=== PATIENT | male | born 1945 | race Caucasian/White ===

== ENCOUNTER 2017-10-09 06:32 | Inpatient (IN) | payer MEDICARE ==
[~2017-10-09] VITALS: Ht 177.8 cm; Wt 101.8 kg
[2017-10-09] VITALS (22 sets, daily range): BP systolic 96–133; BP diastolic 49–85; Ht 177.8 cm; Wt 101.8 kg
--- NOTE | ~2017-10-09 | HEMODYNAMI ---
PATIENT:AVERY EDWARDS MEDICAL RECORD: [id number] : 43 LOCATION:[facility] ADMISSION DATE: 10/09/17 Generatedon:10/09/201711:36 Patient name: AVERY EDWARDS Patient #: [id number] SSN: D OB: 1945 Date of study: 10/09/2017 Page: Of Hemodynamic Procedure Report Patient Data Patient Demographics Procedure consent was obtained First Name: AVERY Gender: Male Last Name: JERRY : 1945 Patient #: [id number] Age: 72 year(s) Race: Unknown Additional ID: [id number] Contact details [address]: [address] [place] [address] State: [place] City: [place] Zip code: [address] Admission Admission Data Admission Date: 10/09/2017 Admission Time: 6:32 Procedure Procedure Types Cath Procedure Peripheral Cath Diagnostic Procedure Miscellaneous Procedure Description Procedure Date Procedure Date: 10/09/2017 Procedure Start Time: 9:55 Procedure Staff Name Function Lv Boston MD Performing Physician Young Johnson RT Monitor Anabelle Joseph RT Scrub Marnie England RN Nurse Procedure Data Cath Procedure Fluoroscopy Diagnostic fluoroscopy Total fluoroscopy Time: time: 14.2 min 14.2 min Diagnostic fluoroscopy Total fluoroscopy dose: 484 dose: 484 mGy mGy Contrast Material Contrast Material Type Amount (ml) Isovue 300 60 Entry Location Entry Primary Successful Side Size Upsize Upsize Entry Closure Succes sful Closure Location (Fr) 1 (Fr) 2 (Fr) Remarks Device Remarks Femoral Right 5 Fr 6 Fr Exoseal artery Long Diagnostic catheters Device Type Used For End Catheter Placement Merit impress Jorgensen 2 Cervical carotid cath 100cm ([id number]) (common) arteriography Procedure Medications Medication Administration Route Dosage Versed I.V. 0.5 mg Fentanyl I.V. 25 mcg Heparin Bolus I.V. 6000 units Heparin Bolus I.V. 3000 units Hemodynamics Rest Heart Rate: 22 (bpm) Snapshots Pre Cath Intra NCS Post Cath Vital Signs Time Heart Resp SPO2 etCO2 NIBP (mmHg) Rhythm Pain Sedation Rate (ipm) (%) (mmHg) Status Level (bpm) 9:41:05 51 11 98 4.5 144/86(119) NSR 0 (11) 10(A) , No pain 9:45:21 56 14 100 3 130/81(106) NSR 0 (11) 10(A) , No pain 9:49:33 57 15 98 6 140/81(120) NSR 0 (11) 10(A) , No pain 9:53:49 54 11 98 5.2 119/78(99) NSR 0 (11) 10(A) , No pain 9:57:56 59 14 99 3.7 116/78(96) NSR 0 (11) 10(A) , No pain 10:02:04 57 16 98 4.5 97/64(75) NSR 0 (11) 10(A) , No pain 10:06:08 61 14 99 4.5 82/60(71) NSR 0 (11) 10(A) , No pain 10:10:10 57 13 100 5.2 89/56(71) NSR 0 (11) 10(A) , No pain 10:14:14 60 18 98 4.5 89/57(66) NSR 0 (11) 10(A) , No pain 10:15:54 56 17 99 4.5 89/58(68) NSR 0 (11) 10(A) , No pain 10:19:58 56 15 100 3.7 85/58(73) NSR 0 (11) 10(A) , No pain 10:23:57 54 17 100 4.5 97/61(80) NSR 0 (11) 10(A) , No pain 10:28:03 53 15 99 3.7 99/62(81) NSR 0 (11) 10(A) , No pain 10:32:07 54 26 100 4.5 110/67(79) NSR 0 (11) 10(A) , No pain 10:36:15 52 15 100 5.2 114/69(102) NSR 0 (11) 10(A) , No pain 10:40:16 51 18 100 4.5 114/71(85) NSR 0 (11) 10(A) , No pain 10:44:26 52 14 100 5.2 117/68(95) NSR 0 (11) 10(A) , No pain 10:48:36 57 11 100 3.7 112/69(89) NSR 0 (11) 10(A) , No pain 10:52:44 51 33 100 4.5 112/68(87) NSR 0 (11) 10(A) , No pain 10:57:00 54 20 98 5.2 73/47(62) NSR 0 (11) 10(A) , No pain 10:59:23 51 15 100 3.7 101/63(83) NSR 0 (11) 10(A) , No pain 11:03:31 50 15 100 4.5 101/61(73) NSR 0 (11) 10(A) , No pain 11:07:37 52 14 100 4.5 111/68(98) NSR 0 (11) 10(A) , No pain 11:12:34 57 14 100 3 128/79(110) NSR 0 (11) 10(A) , No pain 11:16:40 48 12 100 3 108/67(91) NSR 0 (11) 10(A) , No pain 11:20:48 52 12 6 103/69(83) NSR 0 (11) 10(A) , No pain 11:24:49 52 10 98 5.2 110/69(94) NSR 0 (11) 10(A) , No pain 11:29:48 52 16 100 4.5 Measuring NSR 0 (11) 10(A) , No pain 11:29:52 53 16 99 2.2 110/72(94) NSR 0 (11) 10(A) , No pain 11:33:58 57 15 99 2.2 124/75(87) NSR 0 (11) 10(A) , No pain Medications Time Medication Route Dose Verified Delivered Reason Notes Effectivene ss by by 9:56:36 Versed I.V. 0.5 Lv Dye for mg Ludy England RN sedation 9:56:46 Fentanyl I.V. 25 Lv Dye for mcg Ludy England RN sedation 10:02:43 Heparin I.V. 6000 Lv Dye Bolus units Ludy England RN, MD 10:51:32 Heparin I.V. 3000 Lv Marnie Bolus units Ludy England RN, MD Procedure Log Time Note 9:13:54 Young Johnson RT (R) (CV) sent for patient. Start room use. 9:14:03 Time tracking: Regular hours 9:14:07 Plan of Care:Hemodynamics will remain stable., Cardiac rhythm will remain stable., Comfort level will be maintained., Respiratory function will remain adequate., Patient/ family verbilizes understanding of procedure., Procedure tolerated without complication., Recovers from procedure without complications.. 9:14:13 Patient received from Outpatients to IR Alert and oriented. Tansferred to table in Supine position. 9:14:15 Correct patient and procedure confirmed by team. 9:14:16 Signed procedure consent form obtained from patient. 9:14:18 ECG and BP/O2 sat monitors applied to patient. 9:14:19 Full Disclosure recording started 9:14:20 - 9:14:22 H&P Date Dictated: 10/09/2017 H&P Addendum completed by physician on day of procedure. (MUST COMPLETE FOR ALL OUTPATIENTS). 9:14:23 Pre-procedure instructions explained to patient. 9:14:23 Pre-op teaching completed and patient verbalized understanding. 9:14:33 Family in waiting room. 9:14:37 Patient NPO since Midnight. 9:14:42 Is the patient allergic to Iodine/contrast media? No. 9:14:44 Is patient on blood thinner?Yes 9:14:46 ACC The patient was administered the following blood thiners within the last 24 hours: ACCPlavix 9:14:49 - 9:14:49 ----Pre-sedation anethsthesia assessment.---- 9:14:52 Previous problem with sedation/anesthesia? No ? 9:14:53 Snore? Yes 9:14:55 Sleep apnea? No 9:14:56 Deviated septum? No 9:14:57 Opens mouth fully? Yes 9:14:59 Sticks out tongue? Yes 9:15:09 Airway obstruction? Yes copd 9:15:16 Dentures? Yes in 9:15:23 Patient pain scale 0/10 no pain. 9:15:25 Sharps counted by scrub and verified by R.N. 9:15:27 Alarms reviewed by R. N. 9:15:34 Right groin area was prepped with chlora-prep and draped in sterile fashion 9:15:40 Use device set IR Diagnostic 9:15:41 ACIST Syringe (53439) opened to sterile field. 9:15:41 ACIST Hand Control (81495) opened to sterile field. 9:15:42 ACIST Manifold (93912) opened to sterile field. 9:15:42 Bag Decanter (2002S) opened to sterile field. 9:15:42 Sterile Angiographic Pack opened to sterile field. 9:39:56 Vital chart was started 9:39:57 Baseline sample Acquired. 9:49:53 Baseline sample Acquired. 9:53:25 Physician arrived 9:53:26 --------ALL STOP TIME OUT------ 9:53:28 Final Timeout: patient, procedure, and site verified with staff and physician. All members of the team are in agreement. 9:53:30 Right groin site verified by team. 9:53:34 Sedation plan: IV Moderate Sedation Medication:Versed, Fentanyl 9:55:12 Procedure started. 9:55:16 Local anesthetic to right femoral artery with Lidocaine 1% by Lv Boston MD.INITIAL ACCESS ONLY 9:55:40 A 5 Fr sheath was inserted into the Right Femoral artery 9:55:43 OBREGON 260 wire (O04455) opened to sterile field. 9:55:44 BENTSON 145cm wire (Y01488) opened to sterile field. 9:55:44 SHEATH 5FR [place] (VKX053) opened to sterile field. 9:55:44 Micropuncture VSI 4FR kit opened to sterile field. 9:55:45 TUBING Contrast Injection High Pressure (BBK370P) opened to sterile field. 9:55:46 GLIDE WIRE ANGLE 180cm (ZU9919) opened to sterile field. 9:55:48 INFLATOR BasixTOUCH (TZ1107) opened to sterile field. 9:56:05 A Merit impress Jorgensen 2 cath 100cm ([id number]) was advanced over the wire and used for Cervical carotid (common) arteriography. 9:56:36 Versed 0.5 mg I.V. was administered by Marnie England RN; for sedation; 9:56:46 Fentanyl 25 mcg I.V. was administered by Marnie England RN; for sedation ; 10:02:08 Sheath upsized to a 6 Fr Long. 10:02:43 Heparin Bolus 6000 units I.V. was administered by Marnie England RN; ; 10:11:19 GLIDE WIRE ANGLE 260cm (EA7461) opened to sterile field. 10:11:28 TORQUE DEVICE PLASTIC .038 ( TD01) opened to sterile field. 10:13:01 CHOICE PT Extra Support J 300cm guide wire (2647612K6) opened to steril e field. 10:13:32 CXI SUPPORT .035 135 CM STR catheter (N14443) opened to sterile field. 10:13:34 SPIDER EMBOLIC PROTECTION DEVICE 5MM ([id number]) opened to sterile field. 10:14:54 AMPLATZ Super stiff 260cm wire ([id number]) opened to sterile field. 10:43:42 Inflation number: 1 A SABER 3.0 X 2 X 150 balloon ([id number]) was preppe d and advanced across the Undefined1, then inflated 10:44:02 PROTEGE RX TAPERED 8-6MM X 30MM X 135CM stent ([id number]) was deploye d across Undefined1 . 10:44:36 Inflation number: 2 A VIATRAC 5 x 2 x 135 balloon ([id number]) was prepped and advanced across the Undefined1, then inflated 10:45:54 SHEATH 6FR [place] (FKA211) opened to sterile field. 10:50:52 PROTEGE 7MM X 30MM X 135CM stent ([id number]) was deployed across Undefined1 . 10:51:29 Inflation number: 3 A VIATRAC 6 x 2 x 135 balloon ([id number]) was prepped and advanced across the Undefined1, then inflated 10:51:32 Heparin Bolus 3000 units I.V. was administered by Marnie England RN; ; 11:10:32 Sheath removed intact; hemostasis achieved with Exoseal to the Right Femoral artery. 11:11:08 MYNX COMMERCIAL HELICOPTER PILOT 6FR/7FR (UC5006) opened to sterile field. 11:12:28 Procedure ended.(Physican Out) 11:12:42 Fluoroscopy time 14.20 minutes. 11:12:47 Fluoroscopy dose: 484 mGy 11:12:47 Flurop Dose total: 484 11:12:52 Contrast amount:Isovue 300 60ml. 11:12:53 Sharps counted by scrub and verified by R.N. 11:13:06 Insertion/operative site no bleeding no hematoma. 11:13:13 Post-op/insertion site Right Abdominal area dressed using a 4 x 4 and Tegaderm. 11:13:32 Post Abdominal area:stable 11:13:44 Post Procedure Pulses reassessed and unchanged 11:13:49 Post procedure instruction explained to patient.Patient verbalizes understanding. 11:13:50 Procedure and supply charges have been captured, reviewed, submitted an d are correct. 11:36:02 Report given to CVICU. 11:36:05 Patient transfered to CVICU with Bed. 11:36:26 Vital chart was stopped Intervention Summary Intervention Notes Time ActionType Lesion and Equipment Action# Pressure Duration Attributes Used 10:43:42 Inflate Undefined1 SABER 3.0 X 2 1 0 00:00 balloon X 150 balloon ([id number]) 10:44:02 Deploy self Undefined1 PROTEGE RX 1 expanding TAPERED 8-6MM stent X 30MM X 135CM stent ([id number]) 10:44:36 Inflate Undefined1 VIATRAC 5 x 2 2 0 00:00 balloon x 135 balloon ([id number]) 10:50:52 Deploy self Undefined1 PROTEGE 7MM X 1 expanding 30MM X 135CM stent stent ([id number]) 10:51:29 Inflate Undefined1 VIATRAC 6 x 2 3 0 00:00 balloon x 135 balloon ([id number]) Device Usage Item Name Manufacture Quantity Catalog Number Hospital Part Current Minimal Lot# / Charge Number Stock Stock Serial# Code ACIST Syringe Acist 1 62808 160869 698376 180159 20 (04419) Medical Systems Inc ACIST Hand Acist 1 56905 472126 946882 637518 5 Control Medical (38330) Systems Inc ACIST Manifold Acist 1 25083 997541 111617 025235 5 (17071) Medical Systems Inc Bag Decanter Microtek 1 2001S 512034 34631 075586 5 (2001S) Medical Inc. Sterile Cardinal 1 [id number] 265012 532428 5 Angiographic Health Pack OBREGON 260 wire Cook Medical 1 Y96195 612199 874532 5 4108251 (Q02970) BENTSON 145cm Cook Medical 1 J47883 753913 532037 5 [id number] wire (R23421) SHEATH 5FR Terumo 1 RWD505 908025 678506 679405 40 [place] (VMG684) Micropuncture VSI VASCULAR 1 7266V 542022 441086 5 VSI 4FR kit SOLUTIONS TUBING Merit 1 GLU683Y 485477 492004 059182 5 Contrast Medical Injection High Pressure (TMN081U) GLIDE WIRE Terumo 1 IP2201 431333 689376 343971 5 ANGLE 180cm (MA3158) INFLATOR Merit 1 II5817 695453 213319 921024 5 [id number] BasixTOUCH Medical (DU4327) Merit impress Merit 1 [id number] 908361 593164 0 Jorgensen 2 cath Medical 100cm (932446ZIQ8) GLIDE WIRE Terumo 1 FR4726 246881 964413 986586 5 ANGLE 260cm (EC5523) TORQUE DEVICE [place] 1 TD01 193652 664647 583040 5 PLASTIC .038 ( Scientific TD01) CHOICE PT [place] 1 [id number] 890088 960208 656561 5 [id number] Extra Support Scientific J 300cm guide wire (5757741U6) CXI SUPPORT Cook Medical 1 J32316 185545 606267 218974 5 1584311 .035 135 CM STR catheter (Y02601) SPIDER EMBOLIC Medtronic 1 DQR4-BG-608-320 315083 198760 5 PROTECTION DEVICE 5MM ([id number]) AMPLATZ Super [place] 1 [id number] 827625 09467 034651 5 [id number] stiff 260cm Scientific wire ([id number]) SABER 3.0 X 2 Cardinal 1 4712530V 502178 582094 5 X 150 balloon Health (5662002P) PROTEGE RX Medtronic 1 DOES-1-1-30-135 198567 963828 738147 5 [id number] TAPERED 8-6MM X 30MM X 135CM stent ([id number]) VIATRAC 5 x 2 Ko 1 9343071-74 509057 776887 902461 5 x 135 balloon Vascular (781682576) SHEATH 6FR Terumo 1 QCI607 491958 021980 497152 40 [place] (UNN346) PROTEGE 7MM X Medtronic 1 UNJR-3-44-135 917816 675408 022259 5 30MM X 135CM stent ([id number]) VIATRAC 6 x 2 Ko 1 5438017-37 091311 042405 056487 5 x 135 balloon Vascular ([id number]) MYNX COMMERCIAL HELICOPTER PILOT Access 1 VA0669 544285 284493 5 [id number] 6FR/7FR Closure (NV1939) Signature Audit [place] Stage Time Signature Unsigned Intra-Procedure 10/09/2017 Young 11:36:23 AM Elizabeth RT (R) (CV) Signatures Monitor : Young Signature : Elizabeth RT Date : Time : [facility] [address] [place] [address]
[2017-10-09] MEDS ORDERED: ZANTAC300 MG PO (07:56)
[2017-10-09] MEDS ORDERED: PLAVIX75 MG PO (07:57)
[2017-10-09] MEDS ORDERED: VASOTEC20 MG PO (07:57)
[2017-10-09] MEDS ORDERED: HYDROCHLOROTH12.5 M1 PO (07:57)
[2017-10-09] MEDS ORDERED: TYLENOL PM1 TAB PO (07:58)
[2017-10-09 08:04] LABS: BASOPHILS 0.9 % (0-2); HEMATOCRIT 46.6 % (42.0-54.0); HEMOGLOBIN 16.3 g/dL (13.5-17.5); IMMATURE GRANULOCYTES 0.1 % (0-5); LYMPHOCYTES 25.7 % (15-50); MCH 31.3 pg (26.0-34.0); MCV 89.6 fL (80.0-100.0); MEAN PLATELET VOLUME 9.7 fL (7.4-10.4); MONOCYTES 9.2 % (2-11); NEUTROPHILS 60.1 % (40-80); PLATELET COUNT 247 10x3/uL (130-400); RDW 13.7 % (11.5-14.5); WBC 7.5 10x3/uL (4.8-10.8)
[2017-10-09 08:11] LABS: APTT 26.9 SECONDS (22.8-39.4); INR 1.02 (0.85-1.17)
[2017-10-09 08:16] LABS: ANION GAP 14.9 mmol/L (8-16); CALCIUM 9.8 mg/dL (8.5-10.1); CARBON DIOXIDE 27.2 mmol/L (21.0-32.0); CREATININE - SERUM 1.2 mg/dL (0.6-1.3); POTASSIUM - SERUM 4.1 mmol/L (3.5-5.1)
[2017-10-10] VITALS (59 sets, daily range): BP systolic 61–154; BP diastolic 24–91
[2017-10-10 06:43] LABS: BASOPHILS 0.2 % (0-2); HEMATOCRIT 40.3 % (42.0-54.0); HEMOGLOBIN 13.6 g/dL (13.5-17.5); IMMATURE GRANULOCYTES 0.2 % (0-5); MCH 30.3 pg (26.0-34.0); MCHC 33.7 g/dL (31.0-37.0); MCV 89.8 fL (80.0-100.0); MEAN PLATELET VOLUME 9.6 fL (7.4-10.4); MONOCYTES 10.5 % (2-11); NEUTROPHILS 77.1 % (40-80); PLATELET COUNT 215 10x3/uL (130-400); RBC 4.49 10x6/uL (4.20-6.10); RDW 13.7 % (11.5-14.5)
[2017-10-10 06:47] LABS: WBC 9.6 10x3/uL (4.8-10.8)
[2017-10-10 06:49] LABS: APTT 28.7 SECONDS (22.8-39.4); INR 1.13 (0.85-1.17); PROTIME 14.1 SECONDS (11.6-15.0)
[2017-10-10 07:04] LABS: ALBUMIN 2.9 g/dL (3.4-5.0); ANION GAP 10.7 mmol/L (8-16); BILIRUBIN - TOTAL 0.5 mg/dL (0.2-1.3); CALCIUM 8.3 mg/dL (8.5-10.1); CARBON DIOXIDE 28.2 mmol/L (21.0-32.0); CREATININE - SERUM 1.3 mg/dL (0.6-1.3); POTASSIUM - SERUM 3.9 mmol/L (3.5-5.1); PROTEIN - SERUM 5.9 g/dL (6.4-8.2)
[2017-10-10 10:17] LABS: HEMATOCRIT 40.4 % (42.0-54.0); HEMOGLOBIN 13.8 g/dL (13.5-17.5)
[2017-10-10 15:14] LABS: CKMB 0.6 U/L (0.0-3.6); CREATINE KINASE 19 UL (21-232)
[2017-10-10 15:19] LABS: TROPONIN-I < 0.017 ng/mL (0.000-0.060)
[2017-10-11] VITALS (9 sets, daily range): BP systolic 113–147; BP diastolic 61–73
[2017-10-11] MEDS ORDERED: BAYER CHEWABLE81 MG PO (10:37)
== END 2017-10-11 12:52 | disposition home or self-care (01) | DRG 36 ==
LOC: D.SP 06:32 → D.CLR 11:55 → D.CVICU 12:01 → D.SP 10-10 11:29 → D.CVICU 10-10 11:30
PROVIDERS: Radiology Diagnostic Radiology
PROC: 037L3DZ Dilation of Left Internal Carotid Artery with Intraluminal Device, Percutaneous Approach (ICD-10-PCS; principal; 2017-10-09 09:00)
DX: I65.22 Occlusion and stenosis of left carotid artery (principal); I95.9 Hypotension, unspecified; I10 Essential (primary) hypertension

== ENCOUNTER → 2017-10-20 11:45 | Outpatient (CLI) | payer MEDICARE ==
[2017-10-09 12:02] VITALS: BMI 31.7
[~2017-10-20 11:45] MED LIST: BAYER CHEWABLE81 MG PO; HYDROCHLOROTH12.5 M1 PO; PLAVIX75 MG PO; TYLENOL PM1 TAB PO; VASOTEC20 MG PO; ZANTAC300 MG PO
== END | disposition home or self-care (01) ==
LOC: D.US 11:45
DX: I65.23 Occlusion and stenosis of bilateral carotid arteries (principal)

== ENCOUNTER → 2018-04-27 14:28 | Outpatient (CLI) | payer MEDICARE ==
[2017-10-09 12:02] VITALS: BMI 31.7
== END | disposition home or self-care (01) ==
LOC: D.US 14:28
DX: I65.22 Occlusion and stenosis of left carotid artery (principal)